=== PATIENT | female | born 1950 | race Hispanic/Latino ===

== ENCOUNTER 2017-07-09 11:37 | Outpatient (CLI) | payer BC ==
--- NOTE | 2017-07-23 14:00 | EEG ---
Referring Physician: DR. Aurora CLAY EEG # [id number] TEST TYPE: ROUTINE OUTPATIENT REASON FOR EEG: AMNESTIC EPISODE DATE OF EE07/09/2017 EEG DESCRIPTION: This is a 21 channel digital EEG recording. Electrodes are placed according to the international 10-20 electrode placement system. The background rhythm is predominately 9-10 hertz, medium voltage alpha rhythm. HYPERVENTILATION: Showed no effect. PHOTIC STIMULATION: Showed no effect. There were no epileptiform discharges, sharp transients or asymmetry noted. EKG LEAD: Shows 72 beats per minute, regular rhythm. IMPRESSION: THIS IS A NORMAL AWAKE EEG. [employer]rication Technician: [email or web address] Data Modeler: [email or web address] [email or web address]
== END 2017-07-09 11:38 | disposition home or self-care (01) ==
LOC: EEG 11:37
PROVIDERS: ATTEND Internal Medicine
DX: Z87.898 Personal history of other specified conditions (principal)
CPT/HCPCS: 95816

== ENCOUNTER 2018-10-27 11:08 | Outpatient (CLI) | payer BC ==
[~2018-10-27 11:08] MED LIST: Iopamidol 370 76% 100 ML VIAL ONE
--- NOTE | 2018-10-27 14:15 | CT ---
CT abdomen with IV and oral contrast HISTORY: Upper abdomen pain postprandial. Nausea and vomiting. FINDINGS: The lung bases are clear. Gallbladder has normal its appearance. The liver, spleen, kidneys , adrenal glands, and pancreas are unremarkable. Calcification within the arterial structures. Nondis tention of the hepatic flexure of the colon. No inflammation is evident. The pelvis was not imaged. No evidence of bowel obstruction. Degenerative changes lumbar spine. IMPRESSION: No acute abdomen abnormalities are demonstrated to explain the pain. Atherosclerosis.
== END 2018-10-27 11:09 | disposition home or self-care (01) ==
LOC: BICCT 11:08 → SCSCT 11:09
PROVIDERS: ATTEND Internal Medicine Gastroenterology
DX: R10.10 Upper abdominal pain, unspecified (principal); I70.0 Atherosclerosis of aorta
CPT/HCPCS: 74160; 82565; Q9967